=== PATIENT | male | born 1990 | race Caucasian/White ===

== ENCOUNTER → 2016-10-14 | Outpatient (CLI) | payer SELFPAY ==
[2016-10-14 15:07] LABS: BASO % 0 % (0-3); EOS % 4 % (0-3); HEMATOCRIT 44.4 % (39.0-53.0); HEMOGLOBIN 15.2 g/dL (13.0-17.5); LYMPH # 1.5 x10^3/uL (1.0-4.8); LYMPH % 28 % (24-48); MEAN CORPUSCULAR HEMOGLOBIN 31 pg (25-35); MEAN CORPUSCULAR HGB CONC 34 g/dL (31-37); MEAN CORPUSCULAR VOLUME 90 fL (79-100); MONO % 7 % (0-9); NEUT % 62 % (31-73); PLATELET COUNT 155 x10^3/uL (140-400); RED BLOOD COUNT 4.93 x10^6/uL (4.30-5.70); RED CELL DISTRIBUTION WIDTH 12.9 % (11.5-14.5); WHITE BLOOD COUNT 5.5 x10^3/uL (4.0-11.0)
[2016-10-14 15:26] LABS: CALCIUM 8.6 mg/dL (8.5-10.1); CREATININE 1.3 mg/dL (0.7-1.3); GFR 66.2; POTASSIUM 3.7 mmol/L (3.5-5.1)
== END | disposition home or self-care (01) ==
LOC: SURGPAT 14:28
PROVIDERS: ATTEND Urology
DX: Z01.812 Encounter for preprocedural laboratory examination (principal)
CPT/HCPCS: 36415; 80048; 85027

== ENCOUNTER 2016-10-28 09:41 | Day surgery (SDC) | payer BC ==
[~2016-10-28 09:41] MED LIST: BUPIVACAINE MPF 0.5% 30 ML VIAL. ONE
[2016-10-28] MEDS: IV RINGERS,LACTATED 1000ML 1,000 ML IV SCH ×2 (10:15→10:50)
[2016-10-28] MEDS ORDERED: PROPOFOL 20 ML IV ONE (10:24)
[2016-10-28] MEDS ORDERED: LIDOCAINE 2% PF Vial for OR 5 ML VIAL. ONE ×2 (10:24→11:06)
[2016-10-28] MEDS ORDERED: MIDAZOLAM HCL/PF 2 MG/2 ML VIAL. ONE (10:24)
[2016-10-28] MEDS ORDERED: ONDANSETRON PF 4 MG/2 ML VIAL. ONE (10:24)
[2016-10-28] MEDS ORDERED: DEXAMETHASONE SOD PHOS 20 MG/5 ML VIAL. ONE (10:24)
[2016-10-28] MEDS ORDERED: fentaNYL PF VIAL 100 MCG/2 ML VIAL ONE (10:25)
[2016-10-28] MEDS ORDERED: NEOMY/BACITR/POLYMYXIN OINT PACKET. TP ONE (11:41)
--- NOTE | 2016-10-28 11:51 | DISCH ---
DISCHARGE INSTRUCTIONS Condition on Discharge Condition on Discharge: Stable Activity After Discharge Activity Instructions for Disc: Avoid exertion Diet after Discharge Diet after Discharge: Regular Contacting the DRIvonne after DC Call your doctor for: If your condition worsens Follow-Up Follow up with: Follow up Dr. Bradford in 2 weeks in office KERRY BRADFORD MD October 28, 2016 11:51
--- NOTE | 2016-10-28 11:52 | PDOC4 ---
Operative Note Operative Note pre-op dx-left hydrocele procedure-left hydrocele repair surgeon-mickey piña-general Pt. to PACU in stable condition KERRY CRAWFORD MD October 28, 2016 11:52
[2016-10-28] MEDS ORDERED: IV RINGERS,LACTATED 1000ML 1,000 ML IV SCH (12:02)
[2016-10-28] MEDS ORDERED: HYDR-971 PO (12:07)
[2016-10-28] MEDS ORDERED: CEPH-264 PO (12:07)
[2016-10-28] MEDS ORDERED: HYDR-2762 PO (12:09)
[2016-10-28] MEDS ORDERED: ONDANSETRON PF 4 MG/2 ML VIAL. IV PRN (12:15)
[2016-10-28] MEDS ORDERED: HYDROmorphone 2 MG/ML VIAL IV PRN (12:15)
[2016-10-28] MEDS ORDERED: fentaNYL PF VIAL 100 MCG/2 ML VIAL IV PRN ×2 (12:15)
[2016-10-28] MEDS ORDERED: LIDOCAINE 1% 1 ML SYRINGE. ID PRN (12:15)
[2016-10-28] MEDS ORDERED: PROCHLORPERAZINE 10 MG/2 ML VIAL. IV PRN (12:15)
[2016-10-28] MEDS ORDERED: MORPHINE SULFATE 2 MG/ML DISP.SYRIN. IV PRN (12:15)
[2016-10-28] MEDS ORDERED: HYDROcodone/APAP 7.5/325MG 1 TAB TABLET PO ONE (12:30)
[2016-10-28 13:15] VITALS: BP 108/65
--- NOTE | 2016-10-28 15:34 | OP ---
DATE OF SURGERY: 10/28/2016 OPERATION: Left hydrocele repair. SURGEON: Kerry Bradford M.D. ANESTHESIA: General. PREOPERATIVE DIAGNOSIS: Left hydrocele. POSTOPERATIVE DIAGNOSIS: Left hydrocele. INDICATIONS: The patient is a very pleasant 26-year-old white male with a 3-year history of a left-sided hydrocele, which has gotten bigger in size over time and is very cumbersome to the patient. The patient's scrotal ultrasound showed normal appearing testes and this left-sided hydrocele. The patient was also seen by General Surgery and not felt to have a communicating hydrocele. I discussed with the patient the options, alternatives, benefits, risks and possible complications of left hydrocele repair. He understands this and does wish to proceed with the operation. DESCRIPTION OF PROCEDURE: After obtaining informed consent, the patient was taken to operating room. After an excellent general anesthetic, the patient was placed in a supine position. Groin was prepped and draped in sterile fashion. The patient was preloaded with IV antibiotics. Right testicle was found to be normally descended, ____ left-sided hydrocele was identified. A transverse incision was then made overlying the left anterior hemiscrotum along the skin lines and the incision carried down through the dartos layer. The tunica vaginalis was then opened and clear straw-colored fluid was then drained off, thus draining the left hydrocele. After opening the hydrocele sac, the testicle was inspected and found to be within normal limits. No obvious communication was seen superiorly. Wound was then thoroughly irrigated. An anterior window of the tunica vaginalis (hydrocele sac) was excised and sent for pathologic analysis. The cut edges of the hydrocele sac were then oversewn with 3-0 chromic running and interlocking suture for hemostatic purposes. Following this, hemostasis was checked and found to be excellent. Following this, the dartos layer was then closed with 3-0 chromic and 2-0 chromic simple interrupted sutures and then the scrotal skin closed with 4-0 chromic simple interrupted sutures. Hemostasis was checked and found to be excellent. Following this, the wound edges were infiltrated with 0.5% Marcaine plain for postoperative pain control. Following this, antibiotic ointment and sterile fluff dressings and mesh pants were then placed. Both testes were down in the scrotum in normal position at the end of the procedure. The patient tolerated the procedure very well, was taken to recovery room in stable condition. KERRY BRADFORD MD DR: MARTÍN/teresita JOB#: [id number] / [id number]
--- NOTE | 2016-10-28 16:23 | HP ---
ADMIT DATE: 10/28/2016 SURGICAL HISTORY AND PHYSICAL The patient is coming in this next month for operation. This will be his H and P. CHIEF COMPLAINT: Left hydrocele. HISTORY OF PRESENT ILLNESS: The patient is a very pleasant 26-year-old white male with a 3-year history of left-sided hydrocele. The patient states that the hydrocele is uncomfortable to him. He has tried antibiotic in the past with no improvement in the hydrocele size. The patient had an ultrasound in the past, which showed the testicles themselves to be normal appearing as well as the epididymides with no evidence of any testicular mass, but just the large left hydrocele. I discussed with the patient the options, alternatives, benefits, risks and possible complications of left hydrocele repair. He understands this and does wish to proceed ahead with operation. The patient has also been seen by Dr. Go of general surgery and he is not felt to have a left inguinal hernia. PAST MEDICAL HISTORY: Significant for no major medical problems. PAST SURGICAL HISTORY: He had rotator cuff surgery in 10/2012. MEDICATIONS: He is currently on no medications. ALLERGIES: He has no known drug allergies. REVIEW OF SYSTEMS: The patient is feeling well. PHYSICAL EXAMINATION: GENERAL: The patient is well-developed, well-nourished white male in no acute distress. HEENT: Normocephalic, atraumatic. NECK: Supple. CHEST: Clear to auscultation. CARDIOVASCULAR: Regular rate and rhythm. ABDOMEN: Soft, nontender, no CVA tenderness. GENITOURINARY: Right testicle is descended. The patient with a large left-sided hydrocele, which does not really change in size over time according to the patient. No obvious inguinal hernias. EXTREMITIES: Without clubbing, cyanosis or edema. NEUROLOGIC: Grossly intact. ASSESSMENT: Large left hydrocele. PLAN: I discussed with the patient the options, alternatives, benefits, risks and possible complications of left hydrocele repair versus continued observation. The patient understands this and does wish to proceed ahead with operation. We will, therefore, proceed accordingly. KERRY CRAWFORD MD DR: MARTÍN/teresita JOB#: [id number] / [id number]
--- NOTE | 2016-10-30 15:04 | PATHOLOGY ---
PATHOLOGY REPORT * * * * * * * * FINAL DIAGNOSIS: Segment of mesothelial-lined fibromembranous tissue, left hydrocelectomy: - Consistent with hydrocele sac. (JPM:csd; d/t: 10/30/2016) REPORT ELECTRONICALLY SIGNED BY: Hans Warner M.D. DATE/TIME: 10/30/2016 15:04 * * * * * * * * GROSS PATHOLOGY: Received in formalin labeled "Juan Carlos Crain, left hydrocele sac wall," is a segment of [place] fibromembranous tissue measuring 2.5 x 1.3 x 1.2 cm. No nodules or lesions are identified. [place] tissue is submitted in cassette A1. INITIAL CPT CODE(S): A; 73282 Professional services performed [place] [address] Technical services performed by [facility] at [address] [place] [address]. SPECIMEN(S) RECEIVED: A.Left hydrocele sac wall CLINICAL HISTORY: Left hydrocele PATIENT: JUAN CARLOS CRAIN /AGE: 308/14/1990 (Age: 26) PATIENT #: [id number] ALT CASE #: SPECIMEN COLLECTION DATE: 10/28/2016 SPECIMEN RECEIVED DATE: 10/28/2016 [facility] - [address] [place] [address] - PHONE: [phone] * * * END OF REPORT * * *
== END 2016-10-28 14:31 | disposition home or self-care (01) ==
LOC: SURG 09:41 → EDUNIT# 12:00 → SURG 14:31
PROVIDERS: ATTEND Urology
DX: N43.3 Hydrocele, unspecified (principal); Z98.890 Other specified postprocedural states
CPT/HCPCS: 55040; 88302; J0690; J1100; J2250; J2405; J2704; J3010; J3490